=== PATIENT | male | born 1980 | race Caucasian/White ===

== ENCOUNTER 2023-04-29 22:11 | Emergency (ER) | payer OTHER, SELFPAY ==
[2023-04-29 22:12] VITALS: BP 118/64; PULSE 88; RESP 20; TEMP 36.9; O2SAT 100
--- NOTE | 2023-04-29 22:20 | XR_ITS ---
[address] [address] Patient Name: BEVERLY QUIGLEY MRN: [id number] date: 1980 Sex: M Assigned Patient Location: ER Current Patient Location: [facility] Accession/Order Number: [id number] Exam Date: 04/29/2023 22:30 Report Date: 04/29/2023 23:58 At the request of: HAMLET MARKER Procedure: XR hip LT 2V w/ pelvis EXAM: XR hip LT 2V w/ pelvis HISTORY: pain COMPARISON: None. TECHNIQUE: One view of the pelvis and 2 views of the left hip were obtained. FINDINGS: There are postsurgical changes of the left hemipelvis. No acute fracture or dislocation is seen. The femoral heads are well-seated in the acetabula. There are advanced degenerative changes of the left hip joint with mild degenerative changes of the right hip joint. The sacroiliac joints and pubic symphysis are preserved. XR/XR hip LT 2V w/ pelvis IMPRESSION: 1. Advanced degenerative changes of the left hip joint with no acute osseous abnormality of the pelvis or left hip seen. There are postsurgical changes of the left hemipelvis. Electronically authenticated by: Joshua MOORE Date: 04/29/2023 23:58
[2023-04-29] MEDS: DIAZEPAM 5 MG/ML - 2 ML INJ SYRINGE 10 MG IM (22:50)
[2023-04-29] MEDS: KETOROLAC TROMETHAMINE 60 MG/2 ML VIAL IM (22:54)
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
== END 2023-04-30 01:04 | disposition home or self-care (01) ==
PROVIDERS: Emergency Provider Emergency Medicine
DX: M25.552 Pain in left hip (principal); M62.838 Other muscle spasm
CPT/HCPCS: 73502; 96372; 99284

== ENCOUNTER 2023-05-11 11:57 | Emergency (ER) | payer OTHER, SELFPAY ==
--- NOTE | 2023-05-18 07:06 | ED.GENADUL1 ---
HPI - General Adult General Chief complaint: Extremity Problem, Nontraumatic Stated complaint: LOWER EXTREMITY INFECTION LEFT LEG History of Present Illness HPI narrative: came to the ED by error. Was supposed to be seen at infusion center. I did not see this patient. Related Data Allergies Allergy/AdvReac Type Severity Reaction Status Date / Time Penicillins Allergy Severe Verified 04/29/23 22:12 Discharge Plan Discharge Chief Complaint: Extremity Problem, Nontraumatic Clinical Impression: Patient left without being seen Patient Disposition: Home, Self-Care Discharge Date/Time: 05/11/23 12:20
== END 2023-05-11 12:20 | disposition home or self-care (01) ==
PROVIDERS: Emergency Provider Student in an Organized Health Care Education/Training Program
DX: Z53.8 Procedure and treatment not carried out for other reasons (principal)

== ENCOUNTER 2023-05-14 11:30 | Outpatient (RCR) | payer OTHER, SELFPAY ==
[2023-05-07 12:15] VITALS: BP 104/62; PULSE 75; RESP 18; TEMP 37; O2SAT 98
[2023-05-07] MEDS: ERTAPENEM SODIUM 1 GM in 0.9 % SODIUM CHLORIDE 50 ML IV (12:24)
--- NOTE | 2023-05-07 12:42 | PC.NURSE ---
Patient is here for IV antibiotic, he denies any issues at this time. He does ambulate with crutches, he tolerated his IV start and antibiotic well.
[2023-05-08] MEDS: ERTAPENEM SODIUM 1 GM in 0.9 % SODIUM CHLORIDE 50 ML IV (11:39)
[2023-05-08 11:49] VITALS: BP 120/70; PULSE 94; RESP 18; TEMP 37.2; O2SAT 93
[2023-05-10] MEDS: ERTAPENEM SODIUM 1 GM in 0.9 % SODIUM CHLORIDE 50 ML IV (12:35)
--- NOTE | 2023-05-10 12:41 | PC.NURSE ---
1120 Arrived ambulatory with use of walker. Alert oriented. No show for yesterdays appt, stated he wasnt able to make it. Educated patient on importance of compliance with medication to treat infection. 1125# 24 initiated rt had, tolerated well 12:45 ressting quiety ATB infusing without any issues
[2023-05-11] MEDS: ERTAPENEM SODIUM 1 GM in 0.9 % SODIUM CHLORIDE 50 ML IV (12:31)
[2023-05-14 12:30] VITALS: BP 114/71; PULSE 71; RESP 14; TEMP 37.1; O2SAT 96
--- NOTE | 2023-05-14 12:30 | PC.NURSE ---
Pt. to [facility] amb. using walker. Accompanied by . Seated in recliner. Pt. relays no ride for last couple days and could not make it to hospital for daily antibiotic therapy. Pt reclines chair back and states swelling in left ankle over last couple of days. Left ankle with +3 pitting edema. Pedal pulse palpable. Negative pain in calf with dorsal flexion/extension. Pt. pulls up sweatshirt delatorre, and immediately falls asleep. When asked if patient took any narcotics, she stated only ibuprofen. #22 gauge IV initiated to right hand on first attempt. Flushes easily. IV Invanz initiated at this time. Pt. snoring. Denies needs or c/o. remains at bedside.
[2023-05-14] MEDS: ERTAPENEM SODIUM 1 GM in 0.9 % SODIUM CHLORIDE 50 ML IV (12:44)
--- NOTE | 2023-05-14 13:20 | PC.NURSE ---
IV Invanz infused without difficulty. IV flushed. Blood drawn from IV for ordered labs. IV d/c'd, pressure to site. Pt. d/c'd amb to home with .
[2023-05-14 14:06] LABS: Basophils Percent Auto 0.4 % (0.2-2.0); Eosinophils Absolute Auto 0.1 10^3/uL (0.0-0.7); Eosinophils Percent Auto 2.4 % (0.9-7.0); Hematocrit 27.3 % (42.0-54.0); Hemoglobin 8.7 g/dL (14.0-18.0); Immature Granulocytes Abs Auto 0.02 10^3/uL (0.00-0.03); Immature Granulocytes Pct Auto 0.4 % (0.0-0.5); Lymphocytes Absolute Auto 1.4 10^3/uL (1.2-3.8); Lymphocytes Percent Auto 26.2 % (20.5-60.0); Mean Corpuscular HGB Conc 31.9 g/dL (29.9-35.2); Mean Corpuscular Volume 84.8 fL (80.0-94.0); Mean Platelet Volume 10.6 fL (9.5-13.5); Monocytes Absolute Auto 0.5 10^3/uL (0.3-0.8); Monocytes Percent Auto 8.3 % (1.7-12.0); Neutrophils Absolute Auto 3.4 10^3/uL (1.4-6.5); Neutrophils Percent Auto 62.3 % (43.0-75.0); Platelet Count 434 10^3/uL (150-450); Red Blood Count 3.22 10^6/uL (4.70-6.10); Red Cell Distribution Width 13.7 % (11.0-15.0); White Blood Count 5.4 10^3/uL (4.0-11.0)
--- NOTE | 2023-05-19 13:30 | PC.NURSE ---
Patient no showed again today, I called and spoke to Infectious Disease office and informed them that he has no shown the last 7 times.
== END 2023-05-27 23:59 | disposition home or self-care (01) ==
LOC: INF 11:30
DX: M00.852 Arthritis due to other bacteria, left hip (principal)
CPT/HCPCS: 36415; 80076; 82565; 85025; 96365; 96366; J1335

== ENCOUNTER 2023-06-29 12:25 | Emergency (ER) | payer OTHER, SELFPAY ==
[2023-06-29 12:53] VITALS: BP 115/63; PULSE 75; RESP 16; TEMP 36.9; O2SAT 99; BMI 26.6
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
[2023-06-29 14:09] LABS: Basophils Percent Auto 0.7 % (0.2-2.0); Eosinophils Absolute Auto 0.1 10^3/uL (0.0-0.7); Eosinophils Percent Auto 2.6 % (0.9-7.0); Hematocrit 25.3 % (42.0-54.0); Hemoglobin 7.8 g/dL (14.0-18.0); Immature Granulocytes Abs Auto 0.01 10^3/uL (0.00-0.03); Immature Granulocytes Pct Auto 0.2 % (0.0-0.5); Lymphocytes Absolute Auto 1.2 10^3/uL (1.2-3.8); Lymphocytes Percent Auto 26.8 % (20.5-60.0); Mean Corpuscular HGB Conc 30.8 g/dL (29.9-35.2); Mean Corpuscular Hemoglobin 25.7 pg (25.9-34.0); Mean Corpuscular Volume 83.2 fL (80.0-94.0); Mean Platelet Volume 10.3 fL (9.5-13.5); Monocytes Absolute Auto 0.4 10^3/uL (0.3-0.8); Monocytes Percent Auto 8.8 % (1.7-12.0); Neutrophils Absolute Auto 2.8 10^3/uL (1.4-6.5); Neutrophils Percent Auto 60.9 % (43.0-75.0); Platelet Count 380 10^3/uL (150-450); Red Blood Count 3.04 10^6/uL (4.70-6.10); Red Cell Distribution Width 14.7 % (11.0-15.0); White Blood Count 4.6 10^3/uL (4.0-11.0)
[2023-06-29] MEDS: ERTAPENEM SODIUM 1 GM in 0.9 % SODIUM CHLORIDE 50 ML IV (14:10)
[2023-06-29] MEDS: KETOROLAC TROMETHAMINE 30 MG/ML VIAL IVP (14:10)
[2023-06-29 14:26] LABS: Lactate/Lactic Acid 0.7 mmol/L (0.4-2.0)
[2023-06-29 14:28] LABS: INR 1.08; Prothrombin Time 11.4 sec (9.0-11.6)
[2023-06-29 14:37] LABS: Alanine Aminotransferase 21 U/L (16-63); Albumin Globulin Ratio 0.5; Albumin Level 2.8 g/dL (3.4-5.0); Alkaline Phosphatase 79 U/L (46-116); Anion Gap 12.2; Aspartate Amino Transferase 23 U/L (15-37); BUN Creatinine Ratio 12.6; Bilirubin Total 0.3 mg/dL (0.2-1.0); Calcium 8.8 mg/dL (8.5-10.1); Carbon Dioxide 25.6 mmol/L (21.0-32.0); Chloride 100 mmol/L (98-107); Estimated GFR (African America >60 (>=60); Estimated GFR (Non-African Ame >60 (>=60); Globulin 5.7 g/dL; Glucose 82 mg/dL (74-106); Potassium 3.8 mmol/L (3.5-5.1); Sodium 134 mmol/L (136-145); Total Protein 8.5 g/dL (6.4-8.2)
[2023-06-29 14:44] LABS: C Reactive Protein 13.2 mg/dL (<=1.0)
[2023-06-29 14:48] LABS: Erythrocyte Sedimentation Rate 76 mm/hr (<=15)
== END 2023-06-29 15:05 | disposition home or self-care (01) ==
PROVIDERS: Physician Assistant; Emergency Provider Emergency Medicine
DX: M25.552 Pain in left hip (principal); D64.9 Anemia, unspecified; F17.210 Nicotine dependence, cigarettes, uncomplicated; R79.82 Elevated C-reactive protein (CRP); R70.0 Elevated erythrocyte sedimentation rate
CPT/HCPCS: 36415; 80053; 83605; 85025; 85610; 85652; 86140; 96365; 96375; 99284; J1335

== ENCOUNTER 2023-08-05 14:07 | Outpatient (RCR) | payer OTHER, SELFPAY | END 2023-09-26 09:00 | disposition home or self-care (01) | LOC: PT 14:07 | PROVIDERS: PCP Internal Medicine; Visit Provider Internal Medicine | DX: R29.898 Other symptoms and signs involving the musculoskeletal system (principal); M25.552 Pain in left hip | CPT/HCPCS: 97110; 97113; 97161 ==

== ENCOUNTER 2023-08-10 09:50 | Outpatient (OUT) | payer OTHER, SELFPAY ==
[2023-08-10 10:35] LABS: Basophils Absolute Auto 0.1 10^3/uL (0.0-0.1); Basophils Percent Auto 0.9 % (0.2-2.0); Eosinophils Absolute Auto 0.2 10^3/uL (0.0-0.7); Eosinophils Percent Auto 3.6 % (0.9-7.0); Hematocrit 36.8 % (42.0-54.0); Hemoglobin 10.9 g/dL (14.0-18.0); Immature Granulocytes Abs Auto 0.02 10^3/uL (0.00-0.03); Immature Granulocytes Pct Auto 0.3 % (0.0-0.5); Lymphocytes Absolute Auto 2.2 10^3/uL (1.2-3.8); Lymphocytes Percent Auto 37.5 % (20.5-60.0); Mean Corpuscular HGB Conc 29.6 g/dL (29.9-35.2); Mean Corpuscular Hemoglobin 24.9 pg (25.9-34.0); Mean Platelet Volume 10.1 fL (9.5-13.5); Monocytes Absolute Auto 0.3 10^3/uL (0.3-0.8); Monocytes Percent Auto 5.3 % (1.7-12.0); Neutrophils Absolute Auto 3.1 10^3/uL (1.4-6.5); Neutrophils Percent Auto 52.4 % (43.0-75.0); Platelet Count 397 10^3/uL (150-450); Red Blood Count 4.38 10^6/uL (4.70-6.10); Red Cell Distribution Width 16.7 % (11.0-15.0); White Blood Count 5.8 10^3/uL (4.0-11.0)
[2023-08-10 10:49] LABS: Percent Iron Saturation 11.1 %
[2023-08-11 05:06] LABS: Transferrin 276 mg/dL (177-329)
[2023-08-11 06:08] LABS: HIV Ab/p24 Ag Screen Non Reactive (Non Reactive)
[2023-08-13 16:11] LABS: HBsAg Screen Negative (Negative); HCV Ab Reactive (Non Reactive); Hep A Ab, IgM Negative (Negative); Hep B Core Ab, IgM Negative (Negative)
== END 2023-08-10 09:51 | disposition home or self-care (01) ==
LOC: LAB 09:50
PROVIDERS: PCP Internal Medicine; Visit Provider Internal Medicine
DX: D64.9 Anemia, unspecified (principal); F19.91 Other psychoactive substance use, unspecified, in remission
CPT/HCPCS: 36415; 80074; 82607; 82728; 82746; 83540; 83550; 84466; 85025; 87389; 87522

== ENCOUNTER 2023-08-27 16:08 | Outpatient (OUT) | payer OTHER, SELFPAY | END 2023-08-27 16:09 | disposition home or self-care (01) | LOC: LAB 16:08 | PROVIDERS: PCP Internal Medicine; Visit Provider Internal Medicine | DX: R76.8 Other specified abnormal immunological findings in serum (principal) | CPT/HCPCS: 36415; 87522 ==

== ENCOUNTER 2023-09-14 14:12 | Outpatient (OUT) | payer OTHER, SELFPAY ==
--- NOTE | 2023-09-14 14:34 | XR_ITS ---
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 There is more decreased bone demineralization of the left femoral head. It appears that the femoral head is smaller than on previous exam suggesting there may be erosion of the cephalad aspect of the left femoral head. This is difficult to further characterize on these plain radiographs. Extensive postop changes are again identified of the left ischium, stable from previous exam. There is some heterotopic ossification within the soft tissues anterior lateral to the left proximal femur possibly caused by chronic inflammatory process. No fractures identified.. XR/XR hip LT min 2V IMPRESSION: There is significant new abnormality of the left acetabular femoral joint space. The space appears widened by lucency possibly due to erosion of the acetabulum and femoral head. The etiology is unclear at this time. This could be a chronic inflammation of the left hip eroding the osseous structures. Follow-up cross-sectional imaging is recommended. An MRI would probably be more helpful than a CT. The problem with an MRI is it is possible dural be artifact caused by the postop changes. The above report was placed in the stat call queue. Electronically authenticated by: SHAWN WOOD Date: 09/15/2023 09:14
[2023-09-14 15:11] LABS: Basophils Absolute Auto 0.1 10^3/uL (0.0-0.1); Basophils Percent Auto 0.9 % (0.2-2.0); Eosinophils Absolute Auto 0.2 10^3/uL (0.0-0.7); Eosinophils Percent Auto 2.4 % (0.9-7.0); Hematocrit 35.5 % (42.0-54.0); Immature Granulocytes Abs Auto 0.02 10^3/uL (0.00-0.03); Immature Granulocytes Pct Auto 0.3 % (0.0-0.5); Lymphocytes Absolute Auto 2.3 10^3/uL (1.2-3.8); Lymphocytes Percent Auto 34.8 % (20.5-60.0); Mean Corpuscular Hemoglobin 25.8 pg (25.9-34.0); Mean Corpuscular Volume 83.1 fL (80.0-94.0); Mean Platelet Volume 10.2 fL (9.5-13.5); Monocytes Absolute Auto 0.5 10^3/uL (0.3-0.8); Monocytes Percent Auto 7.9 % (1.7-12.0); Neutrophils Absolute Auto 3.6 10^3/uL (1.4-6.5); Neutrophils Percent Auto 53.7 % (43.0-75.0); Platelet Count 410 10^3/uL (150-450); Red Blood Count 4.27 10^6/uL (4.70-6.10); Red Cell Distribution Width 16.7 % (11.0-15.0); White Blood Count 6.7 10^3/uL (4.0-11.0)
== END 2023-09-14 14:13 | disposition home or self-care (01) ==
LOC: RAD 14:12
PROVIDERS: PCP Internal Medicine; Visit Provider Internal Medicine
DX: M25.552 Pain in left hip (principal); G89.29 Other chronic pain; D63.8 Anemia in other chronic diseases classified elsewhere
CPT/HCPCS: 36415; 73502; 85025

== ENCOUNTER 2023-12-24 07:22 | Outpatient (RCR) | payer OTHER, SELFPAY ==
[2023-12-13] MEDS: ERTAPENEM SODIUM 1 GM in 0.9 % SODIUM CHLORIDE 50 ML IV (12:50)
[2023-12-13 13:09] LABS: Platelet Count 568 10^3/uL (150-450); White Blood Count 7.6 10^3/uL (4.0-11.0)
[2023-12-13 13:21] VITALS: BP 107/74; PULSE 82; RESP 16; TEMP 36.3; O2SAT 97
--- NOTE | 2023-12-13 13:25 | PC.NURSE ---
1243: Pt. to [facility] amb. using walker for assist. Seated in recliner. VSS. #24 gauge IV initiated to right ac on first attempt. Blood obtained for ordered labs. IV Invanz initiated at this time. Pt. tolerates all without c/o. Denies needs. 1319: IV Invanz completed without s&s of adverse reaction. IV d/c'd, pressure to site. Pt. d/c'd amb. to home.
[2023-12-13 13:43] LABS: Alanine Aminotransferase 15 U/L (16-63); Albumin Globulin Ratio 0.5; Albumin Level 3.1 g/dL (3.4-5.0); Alkaline Phosphatase 80 U/L (46-116); Aspartate Amino Transferase 18 U/L (15-37); Bilirubin Direct 0.1 mg/dL (0.0-0.2); Bilirubin Total 0.2 mg/dL (0.2-1.0); Estimated GFR (African America >60 (>=60); Estimated GFR (Non-African Ame >60 (>=60); Globulin 5.7 g/dL; Total Protein 8.8 g/dL (6.4-8.2)
[2023-12-14 12:06] VITALS: BP 128/67; PULSE 96; RESP 18; TEMP 35.5; O2SAT 100
[2023-12-14] MEDS: ERTAPENEM SODIUM 1 GM in 0.9 % SODIUM CHLORIDE 50 ML IV (12:10)
--- NOTE | 2023-12-14 14:05 | PC.NURSE ---
1240 antibiotic infused, tolerated well. iv dc'd from left wrist, site clear, cottonball and coban applied. released ambulatory
[2023-12-15] MEDS: ERTAPENEM SODIUM 1 GM in 0.9 % SODIUM CHLORIDE 50 ML IV (12:43)
--- NOTE | 2023-12-15 13:42 | PC.NURSE ---
1245 arival ambulatory with walker to chair 1. alert oriented. #22 iv initiated on 2nd attempt RACF, patient tolerated well. IV antibiotics initiated. food tray ordered. 1315 iv infused, iv dc'd, catheter intact, site clear.
[2023-12-15 13:44] VITALS: BP 122/75; PULSE 82; RESP 18; TEMP 37; O2SAT 94
[2023-12-16] MEDS: ERTAPENEM SODIUM 1 GM in 0.9 % SODIUM CHLORIDE 50 ML IV (12:45)
--- NOTE | 2023-12-16 14:33 | PC.NURSE ---
1315 iv antibiotics infused, IV dc'd rt AC, site clear, catheter intact.
[2023-12-17] MEDS: ERTAPENEM SODIUM 1 GM in 0.9 % SODIUM CHLORIDE 50 ML IV (12:32)
[2023-12-17 12:36] VITALS: BP 118/70; PULSE 78; RESP 18; TEMP 36.5; O2SAT 93
--- NOTE | 2023-12-17 12:49 | PC.NURSE ---
1230 [facility] ambulatory to chair 1, alert oriented. #22 iv initiated by Tien, excellent blood return, tolerated well.
[2023-12-18] MEDS: ERTAPENEM SODIUM 1 GM in 0.9 % SODIUM CHLORIDE 50 ML IV (12:30)
[2023-12-19] MEDS: ERTAPENEM SODIUM 1 GM in 0.9 % SODIUM CHLORIDE 50 ML IV (12:38)
[2023-12-20 14:35] VITALS: BP 120/68; PULSE 70; RESP 18; TEMP 36.4; O2SAT 97
[2023-12-20] MEDS: ERTAPENEM SODIUM 1 GM in 0.9 % SODIUM CHLORIDE 50 ML IV (14:49)
--- NOTE | 2023-12-20 15:20 | PC.NURSE ---
Patient is here for IV Invanz, he denies any complaints. A 22g was started in his right AC with good blood return, vitals are stable. He tolerated infusion well without any complaints. IV was discontinued and he was discharged home ambulatory.
[2023-12-21] MEDS: ERTAPENEM SODIUM 1 GM in 0.9 % SODIUM CHLORIDE 50 ML IV (12:30)
[2023-12-21 12:32] VITALS: BP 122/80; PULSE 68; RESP 18; TEMP 35.7; O2SAT 96
--- NOTE | 2023-12-21 14:51 | PC.NURSE ---
1215 arrival ambulatory using rolling walker. Alert oriented. Patient now has prevena plus 125 wound vac applied to hip wound, patient stated this was placed yesterday at [facility] while at orthopedic appt.
[2023-12-22 13:15] VITALS: BP 110/65; PULSE 67; RESP 18; TEMP 36.3; O2SAT 96
[2023-12-22] MEDS: ERTAPENEM SODIUM 1 GM in 0.9 % SODIUM CHLORIDE 50 ML IV (13:15)
--- NOTE | 2023-12-22 13:44 | PC.NURSE ---
1315 Arrival ambulatory with walker, alert, offers no complaints. #24 initiated left forearm on 1st attempt, tolerated well. IV antibiotics initiated.
--- NOTE | 2023-12-22 13:49 | PC.NURSE ---
1345 iv atb infused flushed line, dc'd catheter, site clear catheter intact, cottonball and coban applied, released ambulatory with walker
[2023-12-23 12:05] VITALS: BP 117/69; PULSE 85; TEMP 36.7; O2SAT 96
[2023-12-23] MEDS: ERTAPENEM SODIUM 1 GM in 0.9 % SODIUM CHLORIDE 50 ML IV (12:18)
--- NOTE | 2023-12-23 12:48 | PC.NURSE ---
Patient is here for IV antibiotics, vitals are stable. IV was started in his right AC wtih good blood return. He tolerated infusion well and denies any complaints at this time. IV discontinued, discharged home ambulatory.
[2023-12-24] MEDS: ERTAPENEM SODIUM 1 GM in 0.9 % SODIUM CHLORIDE 50 ML IV (12:44)
[2023-12-24 12:45] VITALS: BP 100/67; PULSE 67; TEMP 36.9; O2SAT 93
[2023-12-25 12:36] VITALS: BP 114/66; PULSE 77; TEMP 36.7; O2SAT 96
[2023-12-25] MEDS: ERTAPENEM SODIUM 1 GM in 0.9 % SODIUM CHLORIDE 50 ML IV (12:47)
[2023-12-25 13:24] VITALS: BP 104/75; PULSE 73; TEMP 36.8; O2SAT 96
[2023-12-26] MEDS: ERTAPENEM SODIUM 1 GM in 0.9 % SODIUM CHLORIDE 50 ML IV (12:40)
[2023-12-26 12:44] VITALS: BP 95/62; PULSE 69; TEMP 37; O2SAT 92
== END 2023-12-26 23:59 | disposition home or self-care (01) ==
LOC: INF 07:22
PROVIDERS: PCP Internal Medicine
DX: T84.59XA Infection and inflammatory reaction due to other internal joint prosthesis, initial encounter (principal); Z96.649 Presence of unspecified artificial hip joint
CPT/HCPCS: 36415; 80076; 82565; 85048; 85049; 96365; J1335

== ENCOUNTER 2024-01-14 13:44 | Outpatient (RCR) | payer OTHER, SELFPAY | END 2024-02-23 15:57 | disposition home or self-care (01) | LOC: PT 13:44 | PROVIDERS: PCP Internal Medicine | DX: M25.552 Pain in left hip (principal); Z96.642 Presence of left artificial hip joint; R26.89 Other abnormalities of gait and mobility; R26.9 Unspecified abnormalities of gait and mobility | CPT/HCPCS: 97110; 97161; 97530 ==

== ENCOUNTER 2024-01-21 07:33 | Outpatient (RCR) | payer OTHER, SELFPAY ==
[2023-12-27] MEDS: ERTAPENEM SODIUM 1 GM in 0.9 % SODIUM CHLORIDE 50 ML IV (13:40)
[2023-12-27 13:41] VITALS: BP 110/73; PULSE 60; TEMP 36.6; O2SAT 98
--- NOTE | 2023-12-27 13:43 | PC.NURSE ---
1325: Pt. to [facility] amb. using walker for assist. Seated in recliner. VSS. #24 gauge IV initiated to left ac on first attempt without difficulty. Flushes easily without edema. Pt. denies c/o pain. IV Invanz initiated at this time. Pt. denies needs.
[2023-12-27 14:22] LABS: Platelet Count 458 10^3/uL (150-450); White Blood Count 5.3 10^3/uL (4.0-11.0)
--- NOTE | 2023-12-27 14:33 | PC.NURSE ---
1400: IV antibiotic completed. Blood drawn from IV for weekly lab draw. IV d/c'd, pressure to site. Tolerated all without c/o. 1405: Pt. d/c'd amb. to home.
[2023-12-27 14:35] LABS: Alanine Aminotransferase 22 U/L (16-63); Albumin Globulin Ratio 0.5; Albumin Level 2.9 g/dL (3.4-5.0); Alkaline Phosphatase 100 U/L (46-116); Aspartate Amino Transferase 25 U/L (15-37); Bilirubin Direct <0.1 mg/dL (0.0-0.2); Bilirubin Total 0.2 mg/dL (0.2-1.0); Estimated GFR (African America >60 (>=60); Estimated GFR (Non-African Ame >60 (>=60); Globulin 5.6 g/dL; Total Protein 8.5 g/dL (6.4-8.2)
[2023-12-28] MEDS: ERTAPENEM SODIUM 1 GM in 0.9 % SODIUM CHLORIDE 50 ML IV (12:28)
[2023-12-28 14:03] VITALS: BP 127/72; PULSE 59; TEMP 36.6; O2SAT 96
--- NOTE | 2023-12-28 14:05 | PC.NURSE ---
1216: Pt. to [facility] amb. Seated in recliner. VSS. #24 gauge IV initiated at this time to left forearm on second attempt without difficulty. Flushes easily. Pt. tolerated with minimal c/o discomfort.IV antibiotic initiated at this time. Pt. denies needs. 1255: IV antibiotic completed without c/o. IV d/c'd pressure to site. Pt. d/c'd amb. to home.
[2023-12-29 12:10] VITALS: BP 111/67; PULSE 67; TEMP 36.1; O2SAT 98
[2023-12-29] MEDS: ERTAPENEM SODIUM 1 GM in 0.9 % SODIUM CHLORIDE 50 ML IV (12:21)
--- NOTE | 2023-12-29 12:23 | PC.NURSE ---
Pt is here for IV antibiotics, vitals obtained and stable. IV started in his right AC with good blood return and he denies any pain or complaints at this time.
--- NOTE | 2023-12-29 13:00 | PC.NURSE ---
Patient tolerated infusion well without any issues, he was discharged home ambulatory.
[2023-12-30] MEDS: ERTAPENEM SODIUM 1 GM in 0.9 % SODIUM CHLORIDE 50 ML IV (12:30)
[2023-12-30 12:46] VITALS: BP 101/69; PULSE 49; TEMP 36.4; O2SAT 100
--- NOTE | 2023-12-30 12:49 | PC.NURSE ---
1210: Pt.to [facility] amb. for daily antiibiotic. IV initiated to left ac on second attempt. Pt. tolerated with min. c/o. IV Invanz initiated at this time.
--- NOTE | 2023-12-30 12:59 | PC.NURSE ---
1257: IV Invanz infused without s&S of adverse reaction. IV d/c'd, pressure to site. D/c'd amb. to home
[2023-12-31 12:28] VITALS: BP 104/69; PULSE 128; TEMP 36.4; O2SAT 94
[2023-12-31] MEDS: ERTAPENEM SODIUM 1 GM in 0.9 % SODIUM CHLORIDE 50 ML IV (12:34)
[2023-12-31 13:48] VITALS: PULSE 110
--- NOTE | 2023-12-31 13:49 | PC.NURSE ---
1305 noted pulse of 128 on initial check, patient denies any complaints. recheck at release pulse 110. Instructed to go to the ER should he experience any symptoms, palpitations, shortness of breath fever etc, verbalized understanding. released ambulatory with use of 1 crutch
[2024-01-01] MEDS: ERTAPENEM SODIUM 1 GM in 0.9 % SODIUM CHLORIDE 50 ML IV (12:30)
[2024-01-02] MEDS: ERTAPENEM SODIUM 1 GM in 0.9 % SODIUM CHLORIDE 50 ML IV (12:43)
[2024-01-02 12:46] VITALS: BP 110/77; PULSE 69; TEMP 36.7; O2SAT 90
[2024-01-02 13:14] VITALS: BP 111/71; PULSE 64; TEMP 36.5; O2SAT 95
[2024-01-04 09:15] VITALS: BP 109/74; PULSE 65; TEMP 36.7; O2SAT 91
[2024-01-04 12:28] VITALS: BP 100/69; BP 100/71; PULSE 52; TEMP 36.8; O2SAT 98
[2024-01-04] MEDS: ERTAPENEM SODIUM 1 GM in 0.9 % SODIUM CHLORIDE 50 ML IV (12:28)
--- NOTE | 2024-01-04 17:24 | PC.NURSE ---
1226 Arrival ambulatory to chair 1. alert oriented, vs obtained. IV initiated left forearm with #24 catheter on 1 attempt, tolerated well. IV antibiotic initiated over 30 mins. 1256 IV antibiotic infused, flushed line with NS. IV dc'd catheter intact. cottonball secured with coban. 1300 released ambulatory.
[2024-01-05] MEDS: ERTAPENEM SODIUM 1 GM in 0.9 % SODIUM CHLORIDE 50 ML IV (12:05)
[2024-01-05 12:42] VITALS: BP 134/76; PULSE 57; TEMP 36.4; O2SAT 95
--- NOTE | 2024-01-05 12:46 | PC.NURSE ---
1215 arrival ambulatory to chair 1 alert oriented. 1225 Iv initiated with #24 posterior aspect of left arm, on 2nd attempt, tolerated well, excellent blood return 1230 IV antibiotic initiated over 30 mins.
[2024-01-06 12:05] VITALS: BP 136/60; PULSE 56; TEMP 36.4; O2SAT 98
[2024-01-06] MEDS: ERTAPENEM SODIUM 1 GM in 0.9 % SODIUM CHLORIDE 50 ML IV (12:18)
--- NOTE | 2024-01-06 12:53 | PC.NURSE ---
1205: Pt. to [facility] amb for daily antibiotic therapy. Seated in recliner. IV initiated to right arm. Pt. tolerated without c/o. 1248: Invanz completed without c/o. IV d/c'd, pressure to site. 1250: Pt. d/c'd amb. to home
[2024-01-07] MEDS: ERTAPENEM SODIUM 1 GM in 0.9 % SODIUM CHLORIDE 50 ML IV (12:15)
[2024-01-07 13:15] LABS: Platelet Count 419 10^3/uL (150-450); White Blood Count 6.5 10^3/uL (4.0-11.0)
[2024-01-07 13:25] LABS: Alanine Aminotransferase 23 U/L (16-63); Albumin Globulin Ratio 0.6; Albumin Level 3.3 g/dL (3.4-5.0); Alkaline Phosphatase 120 U/L (46-116); Aspartate Amino Transferase 27 U/L (15-37); Bilirubin Direct <0.1 mg/dL (0.0-0.2); Bilirubin Total 0.2 mg/dL (0.2-1.0); Estimated GFR (African America >60 (>=60); Estimated GFR (Non-African Ame >60 (>=60); Globulin 5.3 g/dL; Total Protein 8.6 g/dL (6.4-8.2)
[2024-01-07 13:31] VITALS: BP 108/76; PULSE 83; TEMP 36.3; O2SAT 96
--- NOTE | 2024-01-07 13:37 | PC.NURSE ---
1250 Labs drawn and sent to laboratory as ordered, IV dc'd after infusion complete. saul and mirna applied to site. Released ambulatory.
[2024-01-08] MEDS: ERTAPENEM SODIUM 1 GM in 0.9 % SODIUM CHLORIDE 50 ML IV (12:35)
[2024-01-09 12:30] VITALS: BP 117/70; PULSE 69; TEMP 36.7; O2SAT 98
[2024-01-09] MEDS: ERTAPENEM SODIUM 1 GM in 0.9 % SODIUM CHLORIDE 50 ML IV (12:40)
[2024-01-10 12:11] VITALS: BP 117/67; PULSE 50; TEMP 36.3; O2SAT 98
[2024-01-10] MEDS: ERTAPENEM SODIUM 1 GM in 0.9 % SODIUM CHLORIDE 50 ML IV (12:25)
--- NOTE | 2024-01-10 13:14 | PC.NURSE ---
1255: Iv antibiotic completed. IV d/c'd. Pt. tolerated all without c/o. 1300: D/c'd amb. to home.
[2024-01-11 12:15] VITALS: BP 124/68; PULSE 56; TEMP 36.6; O2SAT 98
[2024-01-11] MEDS: ERTAPENEM SODIUM 1 GM in 0.9 % SODIUM CHLORIDE 50 ML IV (12:25)
[2024-01-13 12:55] VITALS: BP 94/45; PULSE 64; TEMP 37.2; O2SAT 96
[2024-01-13] MEDS: ERTAPENEM SODIUM 1 GM in 0.9 % SODIUM CHLORIDE 50 ML IV (13:01)
--- NOTE | 2024-01-13 14:32 | PC.NURSE ---
1255: Pt. to [facility] amb. Seated in recliner. VSS. IV initiated to right ac on first attempt. Pt. tolerates without c/o. 1301: IV antibiotic initiated at this time. 1335: Antibiotic therapy completed without s&s of adverse reaction. IV d/c'd, pressure to site. D/c'd amb. to home.
[2024-01-14] MEDS: ERTAPENEM SODIUM 1 GM in 0.9 % SODIUM CHLORIDE 50 ML IV (12:48)
[2024-01-15 09:00] VITALS: BP 118/73; PULSE 55; TEMP 36.5; O2SAT 95
[2024-01-15] MEDS: ERTAPENEM SODIUM 1 GM in 0.9 % SODIUM CHLORIDE 50 ML IV (09:13)
[2024-01-16] MEDS: ERTAPENEM SODIUM 1 GM in 0.9 % SODIUM CHLORIDE 50 ML IV (09:51)
[2024-01-16] MEDS: 0.9 % SODIUM CHLORIDE 50 ML 300 ML IV (09:51)
[2024-01-16 10:18] VITALS: BP 112/71; PULSE 65; TEMP 36.7; O2SAT 93
[2024-01-17 12:15] VITALS: BP 118/57; PULSE 60; TEMP 37.2; O2SAT 95
[2024-01-17] MEDS: ERTAPENEM SODIUM 1 GM in 0.9 % SODIUM CHLORIDE 50 ML IV (12:25)
[2024-01-17 12:39] LABS: Platelet Count 385 10^3/uL (150-450); White Blood Count 5.8 10^3/uL (4.0-11.0)
[2024-01-17 12:50] LABS: Alanine Aminotransferase 43 U/L (16-63); Albumin Globulin Ratio 0.6; Albumin Level 3.4 g/dL (3.4-5.0); Alkaline Phosphatase 125 U/L (46-116); Aspartate Amino Transferase 48 U/L (15-37); Bilirubin Direct <0.1 mg/dL (0.0-0.2); Bilirubin Total 0.2 mg/dL (0.2-1.0); Estimated GFR (African America >60 (>=60); Estimated GFR (Non-African Ame >60 (>=60); Globulin 6.1 g/dL; Total Protein 9.5 g/dL (6.4-8.2)
--- NOTE | 2024-01-18 12:21 | PC.NURSE ---
1215 Arrival ambulatory to chair 1. Alert oriented. IV initiated #24 rt arm on 2nd attempt.
[2024-01-18] MEDS: ERTAPENEM SODIUM 1 GM in 0.9 % SODIUM CHLORIDE 50 ML IV (12:23)
[2024-01-19] MEDS: ERTAPENEM SODIUM 1 GM in 0.9 % SODIUM CHLORIDE 50 ML IV (12:26)
[2024-01-19 12:28] VITALS: BP 127/93; PULSE 69; TEMP 36.3; O2SAT 97
--- NOTE | 2024-01-19 12:31 | PC.NURSE ---
[facility] iv initiated rt antecubital area, excellent blood return. 1225 iv antibiotic initiated.
[2024-01-20] MEDS: ERTAPENEM SODIUM 1 GM in 0.9 % SODIUM CHLORIDE 50 ML IV (12:06)
[2024-01-20 12:18] VITALS: BP 113/66; PULSE 58; O2SAT 95
[2024-01-21 12:07] VITALS: BP 131/88; PULSE 73; TEMP 36.8; O2SAT 95
[2024-01-21] MEDS: ERTAPENEM SODIUM 1 GM in 0.9 % SODIUM CHLORIDE 50 ML IV (12:07)
[2024-01-22 12:10] VITALS: BP 110/71; PULSE 73; TEMP 36.8; O2SAT 96
[2024-01-22] MEDS: ERTAPENEM SODIUM 1 GM in 0.9 % SODIUM CHLORIDE 50 ML IV (12:27)
[2024-01-22 13:04] VITALS: BP 112/70; PULSE 74; TEMP 36.8; O2SAT 96
--- NOTE | 2024-01-22 13:06 | PC.NURSE ---
pt arrived on unit alone for IV antibiotic infusion. pt verified, vitals taken and stable, IV placed in left arm, pt tolerated well, IV antibiotic infused, vitals rechecked and remained stable, pt denies any complaints, pt walked off unit at discharge.
[2024-01-23] MEDS: ERTAPENEM SODIUM 1 GM in 0.9 % SODIUM CHLORIDE 50 ML IV (12:19)
== END 2024-01-25 23:59 | disposition home or self-care (01) ==
LOC: INF 07:33
PROVIDERS: PCP Internal Medicine
DX: T84.52XA Infection and inflammatory reaction due to internal left hip prosthesis, initial encounter (principal); Z96.642 Presence of left artificial hip joint
CPT/HCPCS: 36415; 80076; 82565; 85048; 85049; 96365; 97161; J1335